=== PATIENT | female | born 1985 | race Caucasian/White ===

== ENCOUNTER 2017-09-14 21:28 | Emergency (ER) | payer MEDICAID ==
--- NOTE | 2017-09-15 00:13 | ED Physician Chart ---
ED Chief Complaint/HPI - Patient Information Date Seen:: 09/15/17 Time Seen:: 23:00 Chief Complaint:: headache History of Present Illness:: location: head quality: headache severity: mild, mod duration: since this morning (about 12-14 hours) context: pt says she has this type of headache: frontal head pain, behind both eyes and over her entire head, throbbing type pain. usually has these headaches about 4 times a month. has had them for a long time. has insurance but has not yet called to make appt to establish with primary care. decided to come to the ER for assistance with this headache. when asked pt says this is not the worst headache of my life. this is a common headache which I usually get about 4 times a month. no paralysis, no paresthesia. no seizure. no syncope. mod factors: none assoc s/s: none hx from pt. Allergies:: Allergies Allergy/AdvReac Type Severity Reaction Status Date / Time No Known Allergies Allergy Verified 09/14/17 22:14 Vitals:: Vital Signs - 8 hr 09/14/17 22:04 Temp 98.7 F HR 86 RR 18 BP 151/90 O2 Sat % 97 Historian:: Patient Review:: Nurse's Note Reviewed ED Review of Systems - Review of Systems General/Constitutional: No fever, No chills, No weight loss, No weakness, No diaphoresis, No edema, No loss of appetite Skin: No skin lesions, No rash, No bruising Head: Headache, No light-headedness Eyes: No loss of vision, No pain, No diplopia ENT: No earache, No nasal drainage, No sore throat, No tinnitus Neck: No neck pain, No swelling, No thyromegaly, No stiffness, No mass noted Cardio Vascular: No chest pain, No palpitations, No PND, No orthopnea, No edema Pulmonary: No SOB, No cough, No sputum, No wheezing GI: No nausea, No vomiting, No diarrhea, No pain, No melena, No hematochezia, No constipation, No hematemesis G/U: No dysuria, No frequency, No hematuria Musculoskeletal: No bone or joint pain, No back pain, No muscle pain Endocrine: No polyuria, No polydipsia Psychiatric: No prior psych history, No depression, No anxiety, No suicidal ideation Hematopoietic: No bruising, No lymphadenopathy Allergic/Immuno: No urticaria, No angioedema Neurological: No syncope, No focal symptoms, No weakness, No paresthesia, No headache, No seizure, No dizziness, No confusion, No vertigo ED Past Medical History - Past Medical History Past Medical History: No significant medical hx Family History: None Social History: Non Smoker, No Alcohol, No Drug Use, Surgical History: Cholecystectomy Psychiatricy History: None Medication: None Family Medical History - Family Member Mother History Unknown: Yes ED Physical Exam - Physical Examination General/Constitutional: Awake, Well-developed, well-nourished, Alert, No distress, GCS 15, Non-toxic appearing, Ambulatory Head: Atraumatic Eyes: Lids, conjuctiva normal, PERRL, EOMI Skin: Nl inspection, No rash, No skin lesions, No ecchymosis, Well hydrated, No lymphadenopathy ENMT: External ears, nose nl, Nasal exam nl, Lips, teeth, gums nl Neck: Nontender, Full ROM w/o pain, No JVD, No nuchal rigidity, No bruit, No mass, No stridor Respiratory: Nl effort/Exclusion Cardio Vascular: RRR, No murmur, gallop, rubs, NL S1 S2 GI: No tenderness/rebounding/guarding : No CVA tenderness Extremities: No tenderness or effusion, No edema Neuro/Psych: Alert/oriented, Normal sensory exam Misc: Normal back, No paraspinal tenderness ED Assessment - Assessment General Assessment: pt stable while in ER. pt gives additional history and says that her sisters also have the same headaches in the same manner as she is having. ED Septic Shock - . Is Septic Shock (SBP<90, OR Lactate>4 mmol\L) present?: No - <6hrs of presentation: Vital Signs: Vital Signs - 8 hr 09/14/17 22:04 Temp 98.7 F HR 86 RR 18 BP 151/90 O2 Sat % 97 ED Reassessment (Disposition) - Reassessment Reassessment:: pt improved some after meds. Reassessment Condition:: Improved - Diagnosis Diagnosis:: common migraine headache, improved - Aftercare/Follow up Instructions Aftercare/Follow-Up Instructions:: Refer to Discharge Instructions Notes:: pt is advised of the importance to establish care with PCP. pt says she understands and will make appt. - Patient Disposition Discharge/Transfer:: Home Condition at Disposition:: Stable, Improved
== END 2017-09-15 00:55 | disposition home or self-care (01) ==
LOC: ER 21:28
DX: G43.909 Migraine, unspecified, not intractable, without status migrainosus (principal)
CPT/HCPCS: 99283; 96372; 81025; J1885; Z7502